=== PATIENT | male | born 1970 | race Caucasian/White ===

== ENCOUNTER 2020-12-16 00:26 | Outpatient (CLI) | payer MEDICAID, SELFPAY ==
--- NOTE | 2020-12-16 08:00 | DI.RAD_ITS ---
Exam(s) XR LUMBAR SPINE COMPLETE EXAM: XR LUMBAR SPINE COMPLETE CLINICAL HISTORY: R sided sciatica,M54.31 TECHNIQUE: COMPARISON: No exams were available for comparison FINDINGS: Five views were obtained. There is a slight right convex lumbar scoliosis. There is disc space narr owing at L5-S1 and to a lesser degree at L4-5. Otherwise intervertebral disc spaces in the lumbar re gion are well maintained. Narrowing of intervertebral disc space at T11-T12 is noted. There are mild hypertrophic degenerative changes involving the endplates and facet joints in the lumb ar spine. There are marked hypertrophic endplate changes T11-T12. There is no evidence of spondylolysis or spondylolisthesis. IMPRESSION: Mild degenerative changes of the lumbar spine as described above. Marked endplate degenerative alvarez es at T11-T12 level also noted. RADIATION DOSE DELIVERED: Total DLP
== END 2020-12-16 00:46 ==
PROVIDERS: PCP Family Medicine; Visit Provider Family Medicine
DX: M54.31 Sciatica, right side (principal); M51.16 Intervertebral disc disorders with radiculopathy, lumbar region; M51.36 Other intervertebral disc degeneration, lumbar region
CPT/HCPCS: 72110

== ENCOUNTER 2020-12-16 03:23 | Outpatient (CLI) | payer MEDICAID, SELFPAY ==
[2020-12-16 16:53] LABS: ALT 32 U/L (16-63); AST 31 U/L (15-37); Alkaline Phosphatase 78 U/L (46-116); Anion Gap 9.9 mmol/L (3-11); BUN 17 mg/dL (7-18); Bilirubin, Total 0.5 mg/dL (0.2-1.0); CO2 26.1 mmol/L (21.0-32.0); Calcium 9.3 mg/dL (8.5-10.1); Calculated LDL 95 mg/dL (<100); Chloride 106 mmol/L (98-107); Cholesterol 180 mg/dL (<200); Glucose 84 mg/dL (74-106); HDL Cholesterol 75 mg/dL (40-60); Potassium 4.3 mmol/L (3.5-5.1); Sodium 142 mmol/L (136-145); Total Protein 7.2 g/dL (6.4-8.2); Triglyceride 53 mg/dL (<150)
[2020-12-16 17:01] LABS: C-Reactive Protein 0.24 mg/dL (0.0-0.3)
[2020-12-19 11:48] LABS: HIV-1/2 Ag & Ab Screen Negative (Negative)
== END 2020-12-16 03:24 | disposition home or self-care (01) ==
LOC: LBO 03:24
PROVIDERS: PCP Family Medicine; Visit Provider Family Medicine
DX: F10.11 Alcohol abuse, in remission (principal); L08.9 Local infection of the skin and subcutaneous tissue, unspecified; Z11.4 Encounter for screening for human immunodeficiency virus [HIV]
CPT/HCPCS: 36415; 80053; 80061; 86803; 87389; 86140

== ENCOUNTER 2021-01-03 08:25 | Outpatient (CLI) | payer MEDICAID, SELFPAY ==
--- NOTE | 2021-01-03 09:00 | RT.EKG_ITS ---
APPROVED REPORT Exam: Resting ECG Reason for Exam: high risk med Patient Location: O HR:66 bpm ECG Measurements Heart Rate 66 AXIS WA 126 P 44 QRSd 115 QRS -25 QT 420 T 56 QTc 440 Conclusion Sinus rhythm...normal P axis, V-rate 60- 99 Normal Electrocardiogram
== END 2021-01-03 08:26 | disposition home or self-care (01) ==
LOC: RT 08:25
PROVIDERS: PCP Family Medicine; Visit Provider Family Medicine
DX: Z79.899 Other long term (current) drug therapy (principal)
CPT/HCPCS: 93005; 93010

== ENCOUNTER 2021-04-14 18:21 | Emergency (ER) | payer MEDICAID, SELFPAY ==
[2021-04-14 18:42] VITALS: BP 123/79; PULSE 82; RESP 18; TEMP 36.3; O2SAT 96
--- NOTE | 2021-04-14 19:19 | ED.GENADUL_ITS ---
Discharge Plan Disposition Patient Disposition: HOME Condition: Stable Discharge Details Clinical Impression: Acute exacerbation of chronic low back pain Primary Care Provider: Casper Salazar ED Provider: Sofie Fernandez Home Meds and New Rx's Prescriptions: New prednisone 20 mg tablet See Rx Instructions .ROUTE .COMPLEX Qty: 18 0RF Rx Instructions: Take 3 tabs daily for 3 days, then 2 tabs daily for 3 days, then 1 tab daily for 3 days. methocarbamol 500 mg tablet 500 mg PO Q6H PRN (Reason: muscle spasm) Qty: 14 0RF cephalexin 500 mg capsule 500 mg PO TID 5 Days Qty: 15 0RF Continued dexmethylphenidate [Focalin XR] 25 mg capsule,ER biphasic 50-50 25 mg PO DAILY 0RF prazosin 1 mg capsule 1 mg PO QHS 0RF celecoxib 100 mg capsule 100 mg PO DAILY Qty: 90 3RF Rx Instructions: Can increase to BID if pain is not controlled cyclobenzaprine 10 mg tablet 10 mg PO TID PRN (Reason: muscle spasm) Qty: 90 0RF esomeprazole magnesium 40 mg capsule,delayed release(DR/EC) 40 mg PO DAILY Qty: 90 3RF methadone 10 mg/mL Syringe 120 mg PO DAILY 0RF Discharge Instructions Instructions: Low Back Strain (ED), Acute Wound Care (ED) Additional Instructions: Alternate ice and heat to the affected area(s) several times daily for 20 minutes at a time. Continue to take your regular medications including your Nexium and Celebrex as directed. You are being sent home with prescription for steroids and muscle relaxers. Take the steroids as directed until finished. Take the muscle relaxers as needed and directed for pain. You were also given a prescription for antibiotics to take for your recent hand wounds. Be sure to keep these areas clean and dry and wash with soap and water. Call your primary care doctor's office on Saturday morning to schedule a follow-up appointment for reevaluation. Reschedule your appointment for evaluation at the pain clinic. Return immediately to the emergency department if you develop any worsening or new concerning symptoms. Stand Alone Forms: Work Release Discharge Data Discharge Date/Time-TO BE ENTERED AT DEPARTURE: 04/14/21 20:23 Discharge Physician: Sofie Fernandez Medical Decision Making 50-year-old male with a history of hepatitis C, former IV and narcotic drug abuse on methadone for several years with history of chronic back pain, lumbar disc herniation, lumbar spine surgery and previous episodes of sciatica presents for right-sided lower back pain for the past 6 months, worse over the past few days. Other than chronic right leg tingling, no acute cauda equina symptoms. Vitals within normal limits. Patient appears uncomfortable but nontoxic. He has tenderness to palpation to the right lower back and right buttock. No focal deficits. Neurovascularly intact. Review of records noted that patient has seen his PCP for his chronic back pain and referred to pain clinic appointment which he missed and had an outpatient lumbar spine x-ray which noted degenerative changes. Do not see an indication for repeat imaging as he has no focal deficits or new injury. Will give a dose of IM Toradol, oral Valium and oral steroids and attempt to ambulate. Patient felt better and he was able to ambulate. Patient feels comfortable going home. He had also endorsed that he sustained lacerations to his left f ourth finger and right hand due to recent injuries and is requesting antibiotics. These wounds do not appear acutely infected but will provide with a prescription for antibiotics per his request as needed. Patient advised to follow-up with his PCP for reevaluation and to schedule his follow-up appointment with pain clinic. Usual and customary return precautions given prior to discharge. Medical Records Medical records reviewed: Yes I reviewed the patient's medical records. HPI General Mode of arrival: ambulatory . Date/Time Provider Initiated Documentation: 04/14/21 18:46 . Limitations to Documentation: no limitations . Information obtained by: patient . HPI Narrative: Patient is a 50-year-old male with a history of hepatitis C, former IV and prescription drug use currently on methadone for several years, peptic ulcer disease, chronic lower back pain with history of lumbar disc herniation and sciatica presents for right-sided lower back pain for the past 6 months, worse over the past several days. He states he has been doing a lot of lifting and carrying recently as he is moving out of his residence and states his pain has been worse since then. He states he has seen his PCP for this and referred for outpatient imaging which noted degenerative changes and he has been prescribed steroids with temporary relief in addition to NSAIDs without significant relief. Patient also states that he was referred to the pain clinic for further evaluation of his chronic back pain but states he missed the appointment due to lack of transportation. He states the pain is in his right lower back and radiates down his right leg. He admits to chronic tingling in his leg in addition to worsening of difficulty ambulating and weightbearing over the past few days due to pain. He has not taken any medication for pain today. He denies bowel or bladder incontinence, saddle anesthesia, fever, abdominal pain. Related Data Home Medications Medication Instructions Recorded Confirmed celecoxib 100 mg capsule 100 mg PO DAILY #90 cap 12/23/20 04/14/21 dexmethylphenidate 25 mg 25 mg PO DAILY 12/23/20 04/14/21 capsule,extended release [id number] (Focalin XR) prazosin 1 mg capsule 1 mg PO QHS 12/23/20 04/14/21 cyclobenzaprine 10 mg tablet 10 mg PO TID PRN #90 tab 03/08/21 04/14/21 esomeprazole magnesium 40 mg 40 mg PO DAILY #90 cap 04/10/21 04/14/21 capsule,delayed release cephalexin 500 mg capsule 500 mg PO TID 5 Days #15 cap 04/14/21 methadone 10 mg/mL oral syringe 120 mg PO DAILY 04/14/21 04/14/21 (FOR ORAL USE ONLY) methocarbamol 500 mg tablet 500 mg PO Q6H PRN #14 tab 04/14/21 prednisone 20 mg tablet See Rx Instructions .ROUTE 04/14/21 .COMPLEX #18 tab Previous Rx's Medication Instructions Recorded celecoxib 100 mg capsule 100 mg PO DAILY #90 cap 12/23/20 cyclobenzaprine 10 mg tablet 10 mg PO TID PRN #90 tab 03/08/21 esomeprazole magnesium 40 mg 40 mg PO DAILY #90 cap 04/10/21 capsule,delayed release cephalexin 500 mg capsule 500 mg PO TID 5 Days #15 cap 04/14/21 methocarbamol 500 mg tablet 500 mg PO Q6H PRN #14 tab 04/14/21 prednisone 20 mg tablet See Rx Instructions .ROUTE 04/14/21 .COMPLEX #18 tab Allergies Allergy/AdvReac Type Severity Reaction Status Date / Time gabapentin [From Neurontin] Allergy Intermediate facial and Verified 04/14/21 18:46 pedal edema General Stated Complaint: Nk/Back Pain KLAUS: 3 Review of Systems All systems reviewed & are unremarkable except as noted in HPI and below Constitutional Constitutional: Reports as per HPI, Denies chills and Denies fever(s) Eyes Eyes: Denies blurry vision ENT Ears, Nose, Mouth, and Throat: Denies dizziness, Denies sore throat and Denies throat swelling Cardiovascular Cardiovascular: Denies chest pain and Denies dyspnea Respiratory Respiratory: Denies cough and Denies dyspnea Gastrointestinal Gastrointestinal: Denies abdominal pain, Denies diarrhea and Denies vomiting Genitourinary Genitourinary: Denies hematuria and Denies dysuria Musculoskeletal Musculoskeletal: Reports back pain, Denies numbness and Reports tingling (chronic, R leg) Integumentary/Breasts Skin/Breast: Denies lesions and Denies rash Neurologic Neurologic: Denies dizziness, Denies localized weakness, Denies numbness and Reports tingling (chronic, R leg) Allergic/Immunologic Allergic/Immunologic: Denies throat swelling PFSH All Active Problems (Updated 04/14/21 @ 19:46 by Sofie Fernandez DO) Acute exacerbation of chronic low back pain (Acute) Opioid dependence on agonist therapy (Acute) History of opioid abuse (Acute) History of alcohol abuse (Acute) Hepatitis C (Chronic) Peptic ulcer disease (Chronic) Sciatica, right side (Acute) Medical History (Updated 04/14/21 @ 19:46 by Sofie Fernandez DO) Current smoker Liver laceration 1990, [place] Lumbar disc herniation 2000, L4-L5 [place] Shoulder separation 1990, [place] Surgical History (Updated 11/25/20 @ 12:41 by Olivia Nick RN) Hx of appendectomy 1973, [place] Family History (Updated 11/23/20 @ 09:30 by Nicole Field) Mother Heart disease Social History (Updated 11/23/20 @ 09:30 by Nicole Field) Smoking/Tobacco Use Status: Current every day Tobacco Type: cigarettes Tobacco: How many years used: 20 Quit status: considering quitting Second Hand Exposure: Yes Smoking risk assessment performed?: Yes Alcohol Intake: current Alcohol Intake frequency: 3 or more drinks per day Drug use: Daily Substance use type: marijuana Adopted: No Caregiver/Support person: No Foster care: No Household members: family Housing: house Number of Children: 2 number of grandchildren: 0 Education Level: college Details: associates degree Do you need help understanding health information?: Never 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 Pets and animals: Yes (1) Pets and animals: cat(s) Sexually active: Yes Do you think of yourself as: straight/heterosexual Current gender identity: male What is your relationship status?: How often do you talk on the phone with friends or family?: never How often do you get together with friends or relatives?: never Do you belong to any clubs or organized social groups?: yes Panel score (0-1 are the most socially isolated patients): 1 What type of physical activity do you participate in: yoga Duration: 45-60 minutes/day Frequency: 3-4 times per week /Yazdanism: Jehovah'[employer] Witness Special needs: Yes Seatbelt use: always Helmet use: Yes Helmet use: always Drive intox or ride w/intox marine engine driver: No Do you feel safe at home: Yes Exam Const General: cooperative, uncomfortable, no acute distress and disheveled Orientation: alert, awake and oriented x3 HENMT Head: normal to inspection Mouth: oral mucosae normal Eyes General: appearance normal, both eyes and all related structures Neck Neck: normal visual inspection Resp Effort & Inspection: normal respiratory effort and able to speak in complete sentences Auscultation: clear to auscultation bilaterally Cardio Rate: regular rate Rhythm: regular rhythm GI Inspection: normal to inspection Palpation: soft, not firm, no guarding, not rigid and nontender Auscultation: hypoactive bowel sounds Back/Spine/Pelvis Thoracic/Lumbar Spine: No lumbar spinal tenderness and other (well healed midline lumbar spine surgical scar, no cellulitis) Back/spine/pelvis image: 1. Tenderness to palpation to right lumbar paraspinal region. There is no edema, ecchymosis, erythema, crepitus, open wounds or step-off. Skin General skin exam: no rashes or lesions noted Neuro General: patient alert, patient awake and patient oriented x3 Motor: muscle tone normal throughout and strength 5/5 throughout Sensory Exam: no sensory deficits noted DTR's: Rt Patellar: 1+, Lt Patellar: 1+, Rt Ankle: 1+ and Lt Ankle: 1+ Plantar Reflexes: Equivocal: bilateral (negative babinski b/l ) Extrem Hand/finger images: 1. 1.5 cm linear open wound, chronic appearing, 4 mm gap in the center with edges not well approximated. There is no significant erythema or edema. There is no pus drainage or bleeding. No induration, fluctuance or crepitus. 2. 2cm linear open wound, chronic appearing, 4 mm gap in the center with edges not well approximated. There is no significant erythema or edema. There is no pus drainage or bleeding. No induration, fluctuance or crepitus. Other: b/ DP/PT pulses intact. Psych Appearance: grossly normal Affect: normal affect Course Vital Signs Vital signs: Vital Signs Temperature 97.3 F L 04/14/21 18:42 Pulse 82 04/14/21 18:42 Respiratory Rate 18 04/14/21 18:42 Blood Pressure 123/79 04/14/21 18:42 Pulse Oximetry 96 04/14/21 18:42 Temperature 97.3 F L 04/14/21 18:42 Temperature Source Temporal Artery Scan 04/14/21 18:42 Pulse 82 04/14/21 18:42 Respiratory Rate 18 04/14/21 18:42 Respiratory Effort Non-Labored 04/14/21 18:49 Blood Pressure 123/79 04/14/21 18:42 Blood Pressure Position Sitting 04/14/21 18:42 Pulse Oximetry 96 04/14/21 18:42 Oxygen Delivery Method Room Air 04/14/21 18:42 Oxygen Flow Rate 0 04/14/21 18:42 Pain Level 9 04/14/21 18:42 PAWSS Have you Been Recently Intoxicated or Drunk Within the Last 30 days?: No Have you Ever Experienced Previous Episodes of Alcohol Withdrawal?: No Have you ever Experienced Withdrawal Seizures?: No Have you ever Experienced Delirium Tremens(DT)s?: No Have you ever undergone Alcohol Rehabilitation Treatment (i.e, inpt ot outpatient treatment programs)?: No Have you ever Experienced Blackouts?: No Have you ever Combined Alcohol with other Downers within the last 90 days?: No Have you ever Combined Alcohol with any other Substance of Abuse during the last 90 days?: No Positive Blood Alcohol level on Presentation? [PCS.BAL]: No Result: 0
[2021-04-14] MEDS: diazePAM 5 MG TAB PO (19:44)
[2021-04-14] MEDS: Ketorolac 60 MG/2 ML VIAL IM (19:44)
[2021-04-14] MEDS: predniSONE 20 MG TAB 60 MG PO (19:44)
[2021-04-14 20:21] VITALS: BP 157/85; PULSE 81; RESP 20; O2SAT 100
== END 2021-04-14 20:23 | disposition home or self-care (01) ==
PROVIDERS: Emergency Provider Physician Assistant; PCP Family Medicine
DX: M54.50 Low back pain, unspecified (principal); G89.29 Other chronic pain
CPT/HCPCS: 96372; 99284; 99283; J1885; J7512